=== PATIENT | male | born 1935 | race Caucasian/White ===

== ENCOUNTER 2017-05-19 21:45 | Emergency (ER) | payer OTHER, MEDICARE ==
[~2017-05-19] VITALS: Ht 170.2 cm; Wt 77.2 kg
[~2017-05-19 21:45] MED LIST: AMOXICILLIN875 MG PO; GLUCOTROL XL2.5 MG PO; HYDROCHLOROTH12.5 M3 PO; HYDROCHLOROTHIA25 MG PO; NORVASC10 MG PO; PRILOSEC20 MG PO; ROCALTROL0.25 MCG PO; VASOTEC10 MG PO
[2017-05-19 22:35] LABS: MCH 29.4 PG (29.0-34.0); MCHC 35.1 G/DL (30.0-36.0); MCV 83.7 FL (86-99); MEAN PLAT.VOLUME 10.1 uM^3 (9.0-12.4); PLATELET COUNT 247 K/uL (156-360); RBC DIS.WIDTH-CV 12.1 % (11.8-14.6); RBC DIS.WIDTH-SD 36.8 % (39-53); RED BLOOD COUNT 4.66 M/uL (4.00-5.50); WHITE BLOOD COUNT 10.7 K/uL (4.1-10.2)
[2017-05-19 22:46] LABS: CHLORIDE 100 mEq/L (99-109); POTASSIUM 3.9 mEq/L (3.7-5.4); SODIUM 134 mEq/L (136-147)
[2017-05-19 22:48] LABS: GLUCOSE 138 mg/dL (70-99)
[2017-05-19 22:49] LABS: ANION GAP 13 MEQ/L (2-14)
[2017-05-19 22:52] LABS: GFR ESTIMATE (CALCULATED) 36 mL/min/
[2017-05-19 22:53] LABS: UREA NITROGEN (BUN) 27 mg/dL (9-23)
[2017-05-19 23:00] LABS: TROP-I INTERPRETATION NEGATIVE; TROPONIN-I < 0.01 ng/mL (0.0-0.30)
[2017-05-19 23:14] VITALS: BP 158/77
== END 2017-05-19 23:30 | disposition home or self-care (01) ==
LOC: EME → EDBD 21:45 → EME 21:45
PROVIDERS: Emergency Medicine
DX: R00.2 Palpitations (principal); I49.3 Ventricular premature depolarization; I10 Essential (primary) hypertension; E11.9 Type 2 diabetes mellitus without complications; Z88.8 Allergy status to other drugs, medicaments and biological substances
CPT/HCPCS: 71020; 80048; 83880; 84484; 85027; 93005; 99281; 99284; J3475; J7030